=== PATIENT | female | born 1980 | race African-American/Black ===

== ENCOUNTER 2020-01-11 10:10 | Emergency (ER) | payer MEDICAID ==
[~2020-01-11] VITALS: Ht 167.6 cm; Wt 91.0 kg
[2020-01-11 11:19] LABS: CHLORIDE 108 mEq/L (98-107)
[2020-01-11 13:30] VITALS: BP 128/89
== END 2020-01-11 13:32 | disposition home or self-care (01) ==
LOC: ER 10:10
DX: H57.10 Ocular pain, unspecified eye (principal); J45.909 Unspecified asthma, uncomplicated; E11.9 Type 2 diabetes mellitus without complications; I10 Essential (primary) hypertension; F17.200 Nicotine dependence, unspecified, uncomplicated; Z88.0 Allergy status to penicillin
CPT/HCPCS: 36415; 80053; 81025; 84484; 85651; 86141; 93005; 99285